=== PATIENT | male | born 1960 | race Caucasian/White ===

== ENCOUNTER 2019-07-12 13:53 | Outpatient (CLI) | payer BC ==
[2019-07-12 14:53] LABS: Hemoglobin 15.5 g/dL (14.0-18.0); Mean Corpuscular HGB CONC 33.7 g/dL (32.0-36.0); Mean Corpuscular Hemoglobin 31.2 pg (27.0-31.0); Mean Corpuscular Volume 92.7 fL (78.0-98.0); Mean Platelet Volume 9.1 fL (7.4-10.4); Platelet Count 214 thou/uL (130-400); RBC Distribution Width 11.9 % (11.5-14.5); Red Blood Cell (RBC) Count 4.97 mill/uL (4.70-6.10); White Blood Cell (WBC) Count 11.1 thou/uL (4.8-10.8)
[2019-07-12 15:01] LABS: INR-International Normal Ratio 1.4; PTT 39.3 SEC (22.9-36.1); Prothrombin Time 17.3 SEC (12.0-14.7)
[2019-07-12 15:15] LABS: Anion Gap 12 mmol/L (10-20); BUN (Urea Nitrogen) 19 mg/dL (8.4-25.7); Calc. Creatinine Clearance 0 mL/min (70-130); Calcium 8.8 mg/dL (7.8-10.44); Carbon Dioxide 24 mmol/L (22-29); Chloride 109 mmol/L (98-107); Estimated GFR-MDRD 86; Glucose 115 mg/dL (70-105); Potassium 4.1 mmol/L (3.5-5.1); Sodium 141 mmol/L (136-145)
== END 2019-07-12 13:54 | disposition home or self-care (01) ==
LOC: LABBT 13:53
PROVIDERS: ATTEND Internal Medicine Cardiovascular Disease
DX: Z01.818 Encounter for other preprocedural examination (principal); I48.91 Unspecified atrial fibrillation
CPT/HCPCS: 80048; 85027; 85610; 85730; 93005; 93010

== ENCOUNTER 2019-07-16 05:34 | Inpatient (IN) | payer BC ==
[2019-07-16] MEDS ORDERED: Fentanyl 100 MCG/2 ML VIAL ONE ×2 (06:49→08:27)
[2019-07-16] MEDS ORDERED: Midazolam HCl 2 mg/2 ml Vial ONE ×2 (06:49→07:43)
[2019-07-16] MEDS ORDERED: Heparin 10,000 UNITS/1 ML VIAL ONE ×3 (07:02→11:26)
[2019-07-16] MEDS ORDERED: Heparin (Artline) 1,500 ML ONE (07:02)
[2019-07-16] MEDS ORDERED: Heparin 25,000 units/D5W 500 ML ONE (08:20)
[2019-07-16] MEDS ORDERED: Isoproterenol 0.2 MG/1 ML AMP ONE (08:20)
[2019-07-16] MEDS ORDERED: PHENYLEPHRINE-NS 100 MCG/ML 10 ML SYRINGE ONE ×3 (09:06→13:47)
[2019-07-16] MEDS ORDERED: Phenylephrine HCL 10 MG/ML VIAL ONE (09:22)
[2019-07-16] MEDS ORDERED: Acetaminophen/Codeine 30-300mg Tablet PO PRN ×3 (11:15→13:00)
[2019-07-16] MEDS ORDERED: Furosemide 40 MG TAB PO PRN (11:17)
[2019-07-16] MEDS ORDERED: Ketorolac Tromethamine 30 MG/ML VIAL IVP PRN (11:17)
[2019-07-16] MEDS ORDERED: Protamine Sulfate 50 MG/5 ML VIAL ONE (12:29)
[2019-07-16] MEDS ORDERED: ACETAMINOPHEN PO PRN (12:57)
[2019-07-16] MEDS ORDERED: [UNRECOGNIZED DRUG - OTHER] PO PRN (12:57)
[2019-07-16] MEDS ORDERED: DIPHENHYDRAMINE PO PRN (12:57)
[2019-07-16] MEDS ORDERED: PHENYLEPHRINE PO PRN (12:57)
[2019-07-16] MEDS ORDERED: DOPamine 400 MG/D5W 250 ML 250 ML ONE (13:20)
--- NOTE | 2019-07-16 13:27 | OP ---
DATE OF PROCEDURE: 07/16/2019 PROCEDURE PERFORMED: Electrophysiology study and radiofrequency ablation. REASON FOR PROCEDURE: Mr. Liu is a 59-year-old man with history of the atrial fibrillation, was found persisting in 04/2019, also [id number] reduced LVEF at 40% to 45% noted. He was anticoagulated since then and his left atrium was found to be markedly enlarged and eventually primary ablation approach was chosen due to his lack of comorbidities. The left atrial size enlargement which likely make antiarrhythmic agents successfully suppressed atrial arrhythmias, here for pulmonary venous isolation procedure. DESCRIPTION OF PROCEDURE: The patient received general anesthesia by anesthesia specialist. The left and right femoral vein was prepped and draped and anesthetized using subcutaneous lidocaine. Under ultrasound guidance, both femoral veins were cannulated. On the left side, an 11-Zambian sheath was used to advance the intracardiac echocardiogram probe into the right atrium, which was used to monitor the transeptal procedure, the pericardial space, and catheter manipulation throughout the case. Also, on the left femoral vein, a Preface long sheath was used to position a duo-Deca catheter in the right atrium and CS position. Also, from the right side, two 8-Zambian short sheaths were introduced initially, through which a ThermoCool SFST catheter was used to obtain 3D map of the right atrium, His bundle, CS, and RV position. Pace mapping and recording was performed in each location. Following that, transseptal puncture was performed after IV heparin was administered in bolus and drip fashion. ACT was checked throughout the procedure to keep ACT over 350. For transseptal procedure, the 8-Zambian short sheath in the right groin was exchanged to SL1 transseptal sheath. A powered Ubiq Mobile transseptal needle was used to achieve transseptal puncture under intracardiac echo and fluoroscopic monitoring. Through the SL1 sheaths, a ThermoCool SFST catheter and a 20-pole Lasso catheter were advanced to the left atrium. 3D map of the left atrium was obtained. Following that, pulmonary venous isolation procedure was performed with esophageal temperature monitored throughout the case to avoid excessive heating. All 4 pulmonary veins were isolated. The posterior wall was also isolated with a roof and an inferior line. Despite these efforts, the patient remained in atrial fibrillation and additional lines were placed in the interatrial septum as well as the roof of the coronary sinus. [id number] scarring was seen. Following these efforts, cardioversion was performed and restored sinus rhythm. Isuprel was administered at 20 mcg per minute and any reconnection was re-ablated. At this point, the catheter was pulled back to the right side and they removed from the body. The long sheaths were exchanged for short sheaths, and after reversal of IV heparin with protamine bolus, the vascular sheaths were closed with Vascade closure device. During the case, intracardiac echo probe did not demonstrate change in the pericardial space. No effusion noted at all. The cardiac silhouette also did not change on fluoroscopy. Following numerical findings were noted. Baseline rhythm was atrial fibrillation. QRS 104 milliseconds, HV 46 milliseconds, AV Wenckebach cycle length after voodoo sinus rhythm was 270 milliseconds, retrograde Wenckebach cycle length was 480 milliseconds. Concentric retrograde VA conduction was seen with LV pacing. AV juju ERP was 400/240 milliseconds and no dual AV juju physiology was seen. The post ablation rhythm was sinus rhythm with cycle length of 832 milliseconds , NJ 174, QRS 103, QT 375 milliseconds. The atrial ERP was 400/200 milliseconds. No atrial arrhythmia was induced with these method. The total ablation time was 23 minutes and 30 seconds with a total of 40 lesions delivered at 40 thomas. CONCLUSION: 1. Successful isolation of all 4 pulmonary vein as was a posterior wall. Additional ablation lesion placed at the interatrial septum and the roof of the coronary sinus. 2. Normal sinus and atrioventricular juju function and His-Purkinje function pre and post ablation. 3. No evidence of accessory pathway. PLAN: Continue anticoagulation and monitor for recurrent atrial arrhythmias. Job ID: [id number] [facility]
[2019-07-16] MEDS ORDERED: Esmolol 100 MG/10 ML VIAL ONE (13:47)
[2019-07-16] MEDS ORDERED: Lidocaine 1% PF 5 ML VIAL ONE (13:47)
[2019-07-16] MEDS ORDERED: ePHEDrine/0.9% NaCl/PF SYRINGE 50 mg/10 ml ONE (13:47)
[2019-07-16] MEDS ORDERED: Glycopyrrolate 0.2 MG/ML 5 ML SYRINGE ONE (13:47)
[2019-07-16] MEDS ORDERED: Ondansetron PF 4 MG/2 ML Vial ONE (13:47)
[2019-07-16] MEDS ORDERED: PROPOFOL 200 MG/20 ML VIAL ONE (13:47)
[2019-07-16] MEDS ORDERED: DOPamine 400 MG/D5W 250 ML 250 ML IVPB SCH (14:00)
[2019-07-16] MEDS: Sucralfate 1 GM TAB PO SCH ×3 (15:10→20:12)
[2019-07-16] MEDS ORDERED: Ondansetron HCl/PF 4 MG/2 ML Vial IVP PRN (16:15)
[2019-07-16] MEDS ORDERED: Non-Formulary Medication 1 EACH PO PRN (16:15)
[2019-07-16] MEDS ORDERED: Promethazine HCl 25 MG/ML VIAL IM/IV PRN (16:15)
[2019-07-16 17:34] LABS: #Monocytes 0.7 thou/uL (0.11-0.59); #Neutrophils 11.9 thou/uL (1.40-6.50); %Basophils 0.1 % (0.0-1.0); %Eosinophils 0.3 % (0.0-10.0); %Lymphocytes 7.1 % (21.0-51.0); %Monocytes 5.4 % (0.0-10.0); %Neutrophils 87.2 % (42.0-75.0); Hemoglobin 14.2 g/dL (14.0-18.0); Mean Corpuscular HGB CONC 33.7 g/dL (32.0-36.0); Mean Corpuscular Hemoglobin 31.5 pg (27.0-31.0); Mean Corpuscular Volume 93.7 fL (78.0-98.0); Platelet Count 164 thou/uL (130-400); Red Blood Cell (RBC) Count 4.52 mill/uL (4.70-6.10); White Blood Cell (WBC) Count 13.6 thou/uL (4.8-10.8)
--- NOTE | 2019-07-16 17:42 | RAD ---
Exam: Chest one view HISTORY:Status post ablation. Evaluate for pneumothorax or pleural effusion. Comparison: None FINDINGS: Cardiac silhouette:Magnified due to portable technique. Aorta: Unremarkable Pulmonary vessels: Normal Costophrenic angles: Clear LUNGS: Diminished lung volumes, likely due to poor inspiratory effort. Pneumothorax: None Osseous abnormalities: None IMPRESSION: 1. No pneumothorax. 2. Magnified cardiac silhouette which is presumed to be due to portable technique. If there is concer n for pericardial fluid, dedicated two-view chest radiograph is recommended
[2019-07-16 17:58] LABS: ALT (SGPT) 37 U/L (8-55); AST (SGOT) 36 U/L (5-34); Albumin 3.7 g/dL (3.5-5.0); Alkaline Phosphatase 62 U/L (40-110); Anion Gap 9 mmol/L (10-20); BUN (Urea Nitrogen) 17 mg/dL (8.4-25.7); Bilirubin, Total 1.9 mg/dL (0.2-1.2); Calc. Creatinine Clearance 119 mL/min (70-130); Calcium 8.2 mg/dL (7.8-10.44); Carbon Dioxide 27 mmol/L (22-29); Chloride 107 mmol/L (98-107); Estimated GFR-MDRD 79; Globulin 2.5 g/dL (2.4-3.5); Glucose 178 mg/dL (70-105); Potassium 4.4 mmol/L (3.5-5.1); Protein, Total 6.2 g/dL (6.0-8.3); Sodium 139 mmol/L (136-145)
--- NOTE | 2019-07-16 18:21 | PDOC.HOSPP ---
- Subjective Encounter Date: 07/16/19 Encounter Time: 18:00 Subjective: sob+, no chest pain or palp at bedside has been weaned off dopamine drip, sbp around 104 - Objective Vital Signs & Weight: Vital Signs (12 hours) Temp Pulse Ox 07/16/19 16:24 95 07/16/19 16:00 98.3 F Weight Weight 227 lb Most Recent Monitor Data Heart Rate from ECG 76 NIBP 104/67 NIBP BP-Mean 79 Respiration from ECG 20 SpO2 93 I&O: 07/15/19 07/16/19 07/17/19 06:59 06:59 06:59 Intake Total 434.1 Balance 434.1 Result Diagrams: 07/16/19 17:23 07/16/19 17:23 Hospitalist ROS - Medication Medications: Active Medications Generic Name Dose Route Start Last Admin Trade Name Freq PRN Reason Stop Dose Admin Sucralfate 1 gm 07/16/19 11:30 07/16/19 17:08 Carafate PO 07/30/19 07:31 1 gm ACHS LES Administration - Exam General Appearance: awake alert Eye: PERRL, anicteric sclera ENT: no oropharyngeal lesions, moist mucosa Neck: supple, no JVD Heart: RRR, no murmur Respiratory: no wheezes, no rales Gastrointestinal: soft, non-tender, non-distended, normal bowel sounds Extremities: no cyanosis, no edema Neurological: cranial nerve grossly intact, no focal deficits Psychiatric: normal affect, A&O x 3 Hosp A/P (1) S/P ablation of atrial fibrillation Code(s): Z98.890 - OTHER SPECIFIED POSTPROCEDURAL STATES; Z86.79 - PERSONAL HISTORY OF OTHER DISEASES OF THE CIRCULATORY SYSTEM Status: Acute (2) Hypotension Status: Resolved Qualifiers: Hypotension type: unspecified hypotension type Qualified Code(s): I95.9 - Hypotension, unspecified (3) Nonischemic cardiomyopathy Code(s): I42.8 - OTHER CARDIOMYOPATHIES Status: Chronic (4) Obesity (BMI 30.0-34.9) Code(s): E66.9 - OBESITY, UNSPECIFIED Status: Chronic (5) Afib Code(s): I48.91 - UNSPECIFIED ATRIAL FIBRILLATION Status: Chronic Qualifiers: Atrial fibrillation type: paroxysmal Qualified Code(s): I48.0 - Paroxysmal atrial fibrillation - Plan pt is s/p ablation of afib with pulm vein isolation for chronic recurrent afib post op pt had hypotension and was on dopamine infusion, which has been weaned off now has sob, portable cxr is rotated?, in view of sob, hypotension, will obtain CT chest wo contrast to make sure no pericardial effusion echo shows ef of 40% is on coreg, eliquis, protonix, sucralfate. will f/u likely dc plan in am if stable
[2019-07-16 19:41] VITALS: BP 101/62
[2019-07-16] MEDS: Carvedilol 3.125 MG TAB PO SCH (20:12)
[2019-07-16] MEDS: Apixaban 5 MG TAB PO SCH (20:12)
--- NOTE | 2019-07-16 20:56 | CT ---
CHEST CT WITHOUT CONTRAST: History: Enlarged cardiac silhouette noted on recent chest radiograph. Patient has undergone cardiac ablation. Comparison: None. FINDINGS: Lower neck: Enlarged heterogeneous left thyroid lobe, incompletely evaluated. Left thyroid lobe measu res 4.8 x 3.9 cm. Limited evaluation of the mediastinum by the lack of IV contrast. There is a small amount of pericard ial fluid in the expected recesses. A large pericardial effusion is not appreciated. Heart size is no rmal. There are calcified paratracheal, precarinal and subcarinal lymph nodes. Normal caliber aorta. Visualized upper abdomen is unremarkable. Calcified granuloma in the liver and spleen are noted. There are small bilateral pleural effusions. There is no pneumothorax. Trachea and central bronchi are patent. Linear opacities and consolidation in both lower lobes likely represent areas of subsegmental atelect asis. No suspicious masses or nodules in the lung parenchyma. No lytic or blastic lesions in the osseous structures. IMPRESSION: 1. No evidence of cardiomegaly. No significant paracardial fluid. 2. No evidence of pneumothorax. 3. Enlarged heterogeneous left thyroid lobe. Non-emergent thyroid ultrasound. POS: PPP
[2019-07-17] MEDS: Sucralfate 1 GM TAB PO SCH ×4 (09:56→20:34)
[2019-07-17] MEDS ORDERED: Amiodarone 150 MG, Admixture Fee 1 EACH in Dextrose 5% in Water 100 ML IVPB SCH (10:00)
[2019-07-17] MEDS: Amiodarone 450 MG, Admixture Fee 1 EACH in Dextrose 5% in Water 250 ML IVPB SCH ×2 (10:49→17:47)
[2019-07-17] MEDS: Apixaban 5 MG TAB PO SCH ×2 (10:49→20:34)
[2019-07-17] MEDS: Carvedilol 3.125 MG TAB PO SCH ×2 (10:49→20:34)
--- NOTE | 2019-07-17 10:50 | ULT ---
Thyroid ultrasound: 07/17/2019 HISTORY: Abnormal chest CT demonstrating an enlarged heterogeneous left thyroid lobe TECHNIQUE: Multiplanar grayscale sonographic imaging of the thyroid gland is obtained. FINDINGS: The thyroid isthmus measures 4 mm in AP dimension. The right lobe measures 3.7 x 1.4 x 1.8 cm and the left lobe measures 6.2 x 5.9 x 4.2 cm. There is a complex large solid and cystic nodule replacing the majority of the left lobe of the thyro id gland measuring 4.9 x 5.3 x 4.1 cm. No thyroid nodule is noted within the isthmus or the right lobe. IMPRESSION: Complex solid and cystic nodule replacing the majority of the left lobe of the thyroid gl and measuring up to 5.3 cm. TI-RADS Category 4-moderately suspicious. Given size greater than 1.5 cm, fine-needle aspiration of dominant left thyroid nodule advised.
[2019-07-17 10:51] LABS: T4 11.4 ug/dL (4.87-11.72); Thyroid Stimulating Hormone 0.1954 uIU/mL (0.35-4.94)
--- NOTE | 2019-07-17 14:05 | PDOC.EP ---
- Subjective Date: 07/17/19 Time: 08:00 Interval History: follow up after PVAI. Had mild transient hypotension post ablation and was on briefly low dose dopamine gtt at 5mcg/min. Dopamine off 07/16 afternoon. BP stable over HS. Feels well. Back into AF at 0600 but asymptomatic with this. - Review of Systems Constitutional: denies: chills, fever, malaise, sweats, weakness, other Respiratory: denies: cough, hemoptysis, pleuritic pain, shortness of breath Cardiology: denies: chest pain, edema, light headedness, orthopnea, palpitations , swelling Gastrointestinal: denies: abdominal pain, constipation, diarrhea, nausea, vomitting Musculoskeletal: denies: unstable gait, falls, leg pain, foot pain - Objective Allergies/Adverse Reactions: Allergies Allergy/AdvReac Type Severity Reaction Status Date / Time smallpox vaccine,live Allergy hospitalized Verified 07/12/19 14:13 as an infant Current Medications Acetaminophen/Codeine Phosphate (Tylenol #3) 1 tab PO Q4H PRN PRN Reason: Mild Pain (1-3) Acetaminophen/Codeine Phosphate (Tylenol #3) 2 tab PO Q4H PRN PRN Reason: Moderate Pain (4-6) Apixaban (Eliquis) 5 mg PO BID [facility] Last Admin: 07/17/19 10:49 Dose: 5 mg Carvedilol (Coreg) 3.125 mg PO BID [facility] Last Admin: 07/17/19 10:49 Dose: 3.125 mg Furosemide (Lasix) 40 mg PO PRN PRN PRN Reason: SOB &/or Wheezing Dopamine HCl/Dextrose (Dopamine 400 Mg/D5w 250 Ml) 250 mls @ 0 mls/hr IVPB INF [facility]; Protocol Amiodarone HCl 450 mg/Miscellaneous Medication 1 each/ Dextrose/Water 259 mls @ 0 mls/hr IVPB [facility]; Protocol Last Admin: 07/17/19 10:49 Dose: 259 mls Ketorolac Tromethamine (Toradol) 30 mg IVP Q6H PRN PRN Reason: Pain Stop: 07/21/19 11:18 Pantoprazole Sodium (Protonix) 40 mg PO DAILY LES Stop: 08/15/19 09:01 Last Admin: 07/17/19 10:49 Dose: 40 mg Diphenhydra/Phenyleph/Acetamin ( Cold & Flu Relief Multi-Symptom Liquid ) 0 each PO Q4H PRN PRN Reason: cold & flu symptoms Sucralfate (Carafate) 1 gm PO ACHS LES Stop: 07/30/19 07:31 Last Admin: 07/17/19 12:11 Dose: Not Given Vital Signs & Weight: Vital Signs Temp Pulse Ox 07/17/19 12:00 98.5 F 07/17/19 11:30 95 07/17/19 07:00 98.5 F 07/17/19 04:00 98 F Weight 227 lb I/O: I/O 07/16/19 07/17/19 07/18/19 06:59 06:59 06:59 Intake Total 794.1 620 Output Total 425 525 Balance 369.1 95 - Quality Measures Condition: Atrial Fibrillation/Flutter (hx or current) CV meds: Eliquis: Yes - Physical Exam General: alert & oriented x3, appears well, no apparent distress, speech clear, affect appropriate HEENT: mucus membranes moist, normocephaly Neck: supple neck, midline trachea, no JVD/HJR, no masses, no lymphadenopathy Cardiology: no murmur, irregularly irregular, tachycardia Lungs: clear to auscultation, normal breath sounds, no wheeze, rales, rhonchi Neurology: cranial nerve 2-12 intact, grossly intact, no lateralizing findings Abdomen: unremarkable, active bowel sounds, soft, no hepatosplenomegaly Extremities: dry, strong pulses, warm Skin: groin sites stable. negative: bruising, drainage, hematoma, swelling - Labs Result Diagrams: 07/16/19 17:23 07/16/19 17:23 - EKG Interpretation EKG shows: Atrial fibrillation - Assessment/Plan Assessment/Plan: 1. Atrial fibrillation s/p PVAI on 07/16/2019 - SR over HS --> AF at 0600, rates 100-120 - largely asymptomatic with AF - bolus with Amidarone 150mg the gtt per protocol. 2. Hypotension -transient post ablation. brief low dose dopamine. off >12 hrs - BP stable now - Echo and CT r/o pericardial effusion 3. Thyroid abnormality - incidental finding with chest CT - will check TSH and free T4, also thyroid US to assess for any underlying thyroid disease as I am starting 3 month course of amiodarone Continue OAC with Eliquis post ablation. Loading on amiodarone. Anticipate DC in AM on amio taper.
[2019-07-17 14:17] VITALS: BMI 32.4
--- NOTE | 2019-07-17 14:38 | PDOC.HOSPP ---
- Subjective Encounter Date: 07/17/19 Encounter Time: 11:20 Subjective: no c/o chest pain or palp is back in afib this am no sob - Objective Vital Signs & Weight: Vital Signs (12 hours) Temp Pulse Ox 07/17/19 12:00 98.5 F 07/17/19 11:30 95 07/17/19 08:00 95 07/17/19 07:00 98.5 F 07/17/19 04:00 98 F Weight Weight 226 lb 13.69 oz Most Recent Monitor Data Heart Rate from ECG 105 NIBP 116/80 NIBP BP-Mean 92 Respiration from ECG 27 SpO2 96 I&O: 07/16/19 07/17/19 07/18/19 06:59 06:59 06:59 Intake Total 794.1 620 Output Total 425 525 Balance 369.1 95 Result Diagrams: 07/16/19 17:23 07/16/19 17:23 Hospitalist ROS - Medication Medications: Active Medications Generic Name Dose Route Start Last Admin Trade Name Freq PRN Reason Stop Dose Admin Apixaban 5 mg 07/16/19 21:00 07/17/19 10:49 Eliquis PO 5 mg BID LES Administration Carvedilol 3.125 mg 07/16/19 21:00 07/17/19 10:49 Coreg PO 3.125 mg BID LES Administration Amiodarone HCl 450 mg/ 259 mls @ 0 mls/hr 07/17/19 10:00 07/17/19 10:49 Miscellaneous Medication 1 IVPB 259 mls each/ Dextrose/Water INF LES Administration Protocol As Directed Pantoprazole Sodium 40 mg 07/17/19 09:00 07/17/19 10:49 Protonix PO 08/15/19 09:01 40 mg DAILY LES Administration Sucralfate 1 gm 07/16/19 11:30 07/17/19 12:11 Carafate PO 07/30/19 07:31 Not Given ACHS LES - Exam General Appearance: awake alert Eye: PERRL, anicteric sclera ENT: no oropharyngeal lesions, moist mucosa Neck: supple, no JVD Heart: no murmur, irregular Respiratory: no wheezes, no rales Gastrointestinal: soft, non-tender, non-distended, normal bowel sounds Extremities: no cyanosis, no edema Neurological: cranial nerve grossly intact, no focal deficits Psychiatric: normal affect, A&O x 3 Hosp A/P (1) Atrial fibrillation with RVR Code(s): I48.91 - UNSPECIFIED ATRIAL FIBRILLATION Status: Acute (2) S/P ablation of atrial fibrillation Code(s): Z98.890 - OTHER SPECIFIED POSTPROCEDURAL STATES; Z86.79 - PERSONAL HISTORY OF OTHER DISEASES OF THE CIRCULATORY SYSTEM Status: Acute (3) Hypotension Status: Resolved Qualifiers: Hypotension type: unspecified hypotension type Qualified Code(s): I95.9 - Hypotension, unspecified (4) Nonischemic cardiomyopathy Code(s): I42.8 - OTHER CARDIOMYOPATHIES Status: Chronic (5) Obesity (BMI 30.0-34.9) Code(s): E66.9 - OBESITY, UNSPECIFIED Status: Chronic - Plan pt is s/p ablation of afib with pulm vein isolation for chronic recurrent afib on 07/16/2019 this am is back in afib with rvr, was in sinus rhythm post procedure. post op pt had hypotension, now resolved echo shows ef of 40% is on coreg, eliquis, protonix, sucralfate and iv amiodarone drip. will f/u may tx to telemetry if ok with . Usg thyroid results noted, has complex cyst in left lobe, will need outpt FNAC will order free T3, T4 and TSH in am.
[2019-07-18 04:28] LABS: Anion Gap 10 mmol/L (10-20); BUN (Urea Nitrogen) 14 mg/dL (8.4-25.7); Calc. Creatinine Clearance 130 mL/min (70-130); Calcium 8.5 mg/dL (7.8-10.44); Carbon Dioxide 26 mmol/L (22-29); Chloride 106 mmol/L (98-107); Estimated GFR-MDRD 87; Glucose 136 mg/dL (70-105); Potassium 4.1 mmol/L (3.5-5.1); Sodium 138 mmol/L (136-145)
[2019-07-18 04:51] LABS: Free T4 (Free Thyroxine) 1.38 ng/dL (0.70-1.48); Thyroid Stimulating Hormone 0.1548 uIU/mL (0.35-4.94)
[2019-07-18] MEDS: Sucralfate 1 GM TAB PO SCH ×2 (08:00→11:52)
[2019-07-18] MEDS ORDERED: Amiodarone 200 MG TAB PO SCH (09:00)
[2019-07-18] MEDS: Carvedilol 3.125 MG TAB PO SCH ×2 (09:17→11:52)
[2019-07-18] MEDS: Apixaban 5 MG TAB PO SCH (09:17)
[2019-07-18 11:31] VITALS: TEMP 97.9
--- NOTE | 2019-07-18 12:38 | PDOC.HOSPP ---
- Subjective Encounter Date: 07/18/19 Encounter Time: 09:45 Subjective: Patient seen and examined. No new complaints. No overnight events - Objective Vital Signs & Weight: Vital Signs (12 hours) Temp Pulse Ox 07/18/19 11:31 97.9 F 07/18/19 11:00 97.9 F 07/18/19 08:00 99.0 F 07/18/19 07:53 95 07/18/19 05:00 98.2 F Weight Weight 226 lb 13.69 oz Most Recent Monitor Data Heart Rate from ECG 90 NIBP 119/86 NIBP BP-Mean 97 Respiration from ECG 22 SpO2 98 I&O: 07/17/19 07/18/19 07/19/19 06:59 06:59 06:59 Intake Total 794.1 1420 330 Output Total 425 2175 250 Balance 369.1 -755 80 Result Diagrams: 07/16/19 17:23 07/18/19 03:19 Radiology Reviewed by me: Yes EKG Reviewed by me: Yes Hospitalist ROS - Review of Systems ENT: denies: ear pain, ear discharge, nose pain, nose discharge, nose congestion , mouth pain, mouth swelling, throat pain, throat swelling, other Respiratory: denies: cough, dry, shortness of breath, hemoptysis, SOB with excertion, pleuritic pain, sputum, wheezing, other Cardiovascular: denies: chest pain, palpitations, orthopnea, paroxysmal noc. dyspnea, edema, light headedness, other Gastrointestinal: denies: nausea, vomiting, abdominal pain, diarrhea, constipation, melena, hematochezia, other Genitourinary: denies: dysuria, frequency, incontinence, hematuria, retention, other Musculoskeletal: denies: neck pain, shoulder pain, arm pain, back pain, hand pain, leg pain, foot pain, other - Medication Medications: Active Medications Generic Name Dose Route Start Last Admin Trade Name Freq PRN Reason Stop Dose Admin Amiodarone HCl 200 mg 07/18/19 09:00 07/18/19 09:16 Cordarone PO 200 mg TID LES Administration Apixaban 5 mg 07/16/19 21:00 07/18/19 09:17 Eliquis PO 5 mg BID LES Administration Carvedilol 3.125 mg 07/18/19 09:00 07/18/19 11:52 Coreg PO 07/18/19 23:00 3.125 mg QID LES Administration Pantoprazole Sodium 40 mg 07/17/19 09:00 07/18/19 09:18 Protonix PO 08/15/19 09:01 40 mg DAILY LES Administration Sucralfate 1 gm 07/16/19 11:30 07/18/19 11:52 Carafate PO 07/30/19 07:31 1 gm ACHS LES Administration - Exam General Appearance: NAD, awake alert Eye: PERRL, anicteric sclera ENT: normocephalic atraumatic, no oropharyngeal lesions Neck: supple, symmetric, no JVD, no thyromegaly Heart: no murmur, no gallops, no rubs, irregular Respiratory: CTAB, no wheezes, no rales, no ronchi Gastrointestinal: soft, non-tender, non-distended, normal bowel sounds Extremities: no cyanosis, no clubbing Skin: normal turgor, no lesions Neurological: cranial nerve grossly intact, normal sensation to touch, no focal deficits Musculoskeletal: normal tone, normal strength, no muscle wasting Psychiatric: normal affect, normal behavior, A&O x 3 Hosp A/P (1) Atrial fibrillation with RVR Code(s): I48.91 - UNSPECIFIED ATRIAL FIBRILLATION Status: Acute (2) S/P ablation of atrial fibrillation Code(s): Z98.890 - OTHER SPECIFIED POSTPROCEDURAL STATES; Z86.79 - PERSONAL HISTORY OF OTHER DISEASES OF THE CIRCULATORY SYSTEM Status: Acute (3) Nonischemic cardiomyopathy Code(s): I42.8 - OTHER CARDIOMYOPATHIES Status: Chronic (4) Obesity (BMI 30.0-34.9) Code(s): E66.9 - OBESITY, UNSPECIFIED Status: Chronic (5) Hypotension Status: Resolved Qualifiers: Hypotension type: unspecified hypotension type Qualified Code(s): I95.9 - Hypotension, unspecified - Plan old records reviewed/req 07/18/19 now on oral amiodaron plan for discharge medication reviewed and continue to provide symptomatic care and supportive care will sign off
--- NOTE | 2019-07-18 13:39 | EKG ---
Test Reason : POST ABLATION Blood Pressure : / mmHG Vent. Rate : 079 BPM Atrial Rate : 113 BPM P-R Int : 000 ms QRS Dur : 112 ms QT Int : 374 ms P-R-T Axes : 000 -31 -33 degrees QTc Int : 428 ms Atrial fibrillation Left axis deviation Incomplete right bundle branch block Nonspecific T wave abnormality , probably digitalis effect Abnormal ECG When compared with ECG of 12-JUL-2019 14:32, (Unconfirmed) Vent. rate has decreased BY 45 BPM Left anterior fascicular block is no longer Present Nonspecific T wave abnormality now evident in Lateral leads Confirmed by RE ANNA (2) on 07/18/2019 1:38:55 PM Referred By: MODESTO Confirmed By:RE ANNA
--- NOTE | 2019-07-18 13:41 | EKG ---
Test Reason : POSTOP Blood Pressure : / mmHG Vent. Rate : 069 BPM Atrial Rate : 069 BPM P-R Int : 152 ms QRS Dur : 104 ms QT Int : 402 ms P-R-T Axes : 048 -11 014 degrees QTc Int : 430 ms Sinus rhythm with Premature supraventricular complexes Otherwise normal ECG When compared with ECG of 16-JUL-2019 12:09, (Unconfirmed) Sinus rhythm has replaced Atrial fibrillation Incomplete right bundle branch block is no longer Present Nonspecific T wave abnormality, improved in Lateral leads Confirmed by RE ANNA (2) on 07/18/2019 1:40:50 PM Referred By: MODESTO Confirmed By:RE ANNA
--- NOTE | 2019-07-18 13:46 | DIS ---
DATE OF ADMISSION: 07/16/2019 DATE OF DISCHARGE: 07/18/2019 PRIMARY CARE PHYSICIAN: Katerine Stokes, nurse practitioner. DISCHARGE DISPOSITION: Home. PRIMARY DISCHARGE DIAGNOSES: 1. Atrial fibrillation with rapid ventricular response. 2. Status post ablation of atrial fibrillation. 3. Hypotension associated with atrial fibrillation with rapid ventricular response, resolved. SECONDARY DISCHARGE DIAGNOSES: Obesity with BMI 32 and nonischemic cardiomyopathy. PRIMARY PROCEDURE/OPERATION: Radiofrequency ablation, procedure was performed by Dr. Figueroa on July 16, 2019. RADIOLOGICAL INVESTIGATION: Echocardiography showed EF of 40% to 45%. CT chest showed no pneumothorax. No pericardial effusion. Thyroid ultrasound showed a complex solid and cystic nodule in left lobe of thyroid. SIGNIFICANT LABORATORY DATA: WBC 13.6, hemoglobin 14.2, and platelet 164. Sodium 138, creatinine 0.89, TSH 0.15, free T3 of 2.68, and free T4 of 1.38. LFT normal. DISCHARGE MEDICATIONS: 1. Eliquis 5 mg p.o. b.i.d. 2. Amiodarone 200 mg p.o. t.i.d. for 7 days, then amiodarone 200 mg p.o. daily after 7 days. 3. Coreg 6.25 mg b.i.d. 4. Lasix 40 mg p.r.n. 5. Protonix 40 mg daily. 6. Carafate 1 g p.o. before meals and at bedtime. CONTRAINDICATION: None. CODE STATUS: Full code. INPATIENT PRODUCTION LINE WELDER: Dr. Figueroa was primary and he admitted this patient. Dr. Grissom was consulted for medical comanagement. TEST RESULTS PENDING ON DISCHARGE: None. ALLERGY: Small pox vaccine. DISCHARGE PLAN: Posthospital, the patient will follow up with primary care physician and Dr. Figueroa in 2 weeks. HOSPITAL COURSE: A 59-year-old male who was admitted by Dr. Figueroa for ablation for atrial fibrillation, which was done successfully and subsequently, the patient converted back to atrial fibrillation with RVR and he developed hypotension, required ICU transfer. He was treated with amiodarone drip and subsequently oral amiodarone was started. His hypotension resolved and the patient remained stable for last couple of days in ICU and today, the patient is planned for discharge with amiodarone and he will follow up with electrophysiology as instructed. The patient is seen and examined at bedside today. Please see my progress note from today for further detail. Job ID: [id number]
[2019-07-19] MEDS ORDERED: Carvedilol 6.25 MG TAB PO SCH (09:00)
--- NOTE | 2019-07-19 10:03 | DIS ---
DATE OF ADMISSION: 07/16/2019 DATE OF DISCHARGE: 07/18/2019 Dictated by Kathryn Vivar PA-C, for Camden Figueroa MD. Initially admitted under observation, but changed to inpatient status. DIAGNOSES: Atrial fibrillation, transient hypotension. PROCEDURES PERFORMED: Electrophysiology study with mapping and ablation. 23 minutes 30 seconds of ablation time for successful isolation of all 4 pulmonary veins as well as posterior wall. Additional ablation lesion placed at the interatrial septum in the roof of the coronary sinus. Normal sinus and AV node function as well as His-Purkinje function pre and post ablation. No evidence of accessory pathway. The left atrium was found to be markedly enlarged. COMPLICATIONS: Transient hypotension post ablation requiring low-dose dopamine. Ultrasound and CT ordered to rule out pericardial effusion, both were negative and did not suggest any acute effusion. HISTORY OF PRESENT ILLNESS: Mr. Liu is a 59-year-old gentleman with a history of atrial fibrillation that is persistent. He has mildly reduced LVEF at 40% to 45%. He was anticoagulated and primary ablation approach was chosen due to his lack of comorbidities, but also his left atrium is markedly enlarged, which makes antiarrhythmic agents successful in suppressing atrial arrhythmias. He underwent pulmonary venous isolation procedure on 07/16/2019. He did experience some transient hypotension following the procedure. He was on low-dose dopamine at 5 mcg/kg/min for less than 2 hours before his blood pressures had recovered enough to discontinue this drip. An echocardiogram ruled out pericardial effusion. Hospitalist was consulted for medical management. A CT was also ordered, which confirms that there was no pericardial effusion. Initially, his heart rhythm and vital signs were then stable. The following morning, he converted into atypical atrial flutter with variable AV conduction and was placed on amiodarone for antiarrhythmic support and arrhythmia suppression. He remains rate controlled in atypical atrial flutter. He is asymptomatic. He feels well. He is ambulating normally throughout the sams and tolerating p.o. intake. He is eager to discharge home today. On his chest CT imaging, it was found that there was an enlarged heterogeneous left thyroid lobe measuring 4.8 x 3.9 cm and ultrasound was recommended. This was ordered and performed the next day. Left lobe of the thyroid gland measured up to 5.3 cm and it was a TI-RADS category 4, moderately suspicious. Recommended fine-needle aspiration as an outpatient, nonemergent. This can be arranged by his primary care provider on an outpatient basis. SUBJECTIVE: Denies heart racing, palpitations, chest pain or pressure, syncope, near syncope, stroke, stroke-like symptoms, or bleeding at the groin sites. OBJECTIVE: VITAL SIGNS: Temperature 97.9, blood pressure 119/86, respirations 22, and oxygen 98% on room air. GENERAL: The patient is alert and oriented. Speech is clear. Affect is appropriate, in no apparent distress. NECK: Supple. There is no jugular venous distention. LUNGS: Clear to auscultation bilaterally on room air. There are no wheezes, crackles, or rhonchi. HEART: Rate is irregular with controlled rate. PMI is nondisplaced. ABDOMEN: Soft and nontender without palpable masses. Hepatojugular reflux is negative. EXTREMITIES: Warm and dry to touch. Well perfused without clubbing, cyanosis, or edema. Bilateral groin sites are stable without hematoma, bleeding, bruising, and they are open to air. NEUROLOGIC: Nonfocal. Gait is stable. DIAGNOSTIC DATA: Telemetry shows atypical atrial flutter with controlled rate in the 70s. DISCHARGE MEDICATIONS: 1. Prescription for amiodarone taper 200 mg p.o. t.i.d. x1 week, then 200 mg p.o. daily thereafter. 2. Coreg was increased to 6.25 mg p.o. b.i.d. 3. Lasix 40 mg p.o. p.r.n. to be taken. 4. Protonix 40 mg p.o. daily x30 days. 5. Carafate 1 g p.o. before meals and at bedtime x2 weeks. 6. Eliquis 5 mg p.o. b.i.d. DISCHARGE INSTRUCTIONS: Mr. Liu is in stable condition following his atrial fibrillation ablation. He is experiencing early recurrence of atypical atrial flutter and was placed on amiodarone for arrhythmia suppression. Anticipate continuing this with a taper as detailed above, and seen him back in clinic in 2 to 3 weeks. If he remains out of rhythm, we will arrange for an outpatient cardioversion. He is asymptomatic and stable at this time. He understands to continue his Eliquis without interruption. Any postablation concerns or questions will be directed to [facility] for followup. CONDITION AT DISCHARGE: Stable. The patient will follow up in 2 to 3 weeks or sooner if symptoms dictate. Job ID: [id number]
--- NOTE | 2019-07-19 19:55 | PQF ---
RAFAT GAMBOA SALIM NOORJIBHAI MD [id number] CLINICAL DOCUMENTATION CLARIFICATION FORM: POST DISCHARGE Addendum to original discharge summary date: ____ Late entry note date: __ DATE: 07/19/2019 ATTN: Pierre Resendiz Please exercise your independent, professional judgment in responding to the clarification form. Clinical indicators are provided on the bottom of this form for your review Please check appropriate box(s): [ ] Hypovolemic Shock [ ] Cardiogenic Shock [ ] Postoperative Shock [ ] Shock Unspecified [ x ] Other diagnosis __hypotension [ ] Unable to determine In addition, please specify: Present on Admission (POA): [ ] Yes [ x ] No [ ] Unable to determine For continuity of documentation, please document condition throughout progress notes and discharge summary. Thank You. CLINICAL INDICATORS - SIGNS / SYMPTOMS / LABS Vital sign 07/16 BP 96/68 Hospitalist PN p3 07/16 Dr Grissom Pt is s/p ablation of afib with pulm vein isolation for chronic recurrent afib Hospitalist PN p3 07/16 Dr Grissom post op pt had hypotension and was on dopamine infusion, which has been weaned off now Hospitalist PN p3 07/16 Dr Grissom Has SOB, post-able sxr is rotated?, in view of SOB, hypotension, will obtain CT chest w/o contrast to make sure no pericardial effusion Electrophysiology PN p1 07/17 Hypotension transient post ablation. Brief low dose dopamine off >12 hrs RISK FACTORS Hospitalist PN p3 07/16 Afib Hospitalist PN p3 07/16 Nonischemic cardiomyopathy Hospitalist PN p3 07/16 Hypotension Hospitalist PN p3 07/16 s/p ablation TREATMENTS: SEP 01 Dopamine drip SEP 01 Amiodarone Admitted to ICU 07/16 (This form is maintained as a part of the permanent medical record) 2014 [email or web address], [email or web address]. All Rights Reserved [email or web address] [not provided] MTDD
== END 2019-07-18 12:58 | disposition home or self-care (01) | DRG 274 ==
LOC: CCL 05:34 → CCU 14:45
PROVIDERS: ADMIT Internal Medicine Cardiovascular Disease; ATTEND Internal Medicine Cardiovascular Disease
PROC: 02583ZZ Destruction of Conduction Mechanism, Percutaneous Approach (ICD-10-PCS; principal; 2019-07-16)
PROC: 5A2204Z Restoration of Cardiac Rhythm, Single (ICD-10-PCS; 2019-07-16)
PROC: 4A023FZ Measurement of Cardiac Rhythm, Percutaneous Approach (ICD-10-PCS; 2019-07-16)
PROC: 4A0234Z Measurement of Cardiac Electrical Activity, Percutaneous Approach (ICD-10-PCS; 2019-07-16)
PROC: 02K83ZZ Map Conduction Mechanism, Percutaneous Approach (ICD-10-PCS; 2019-07-16)
PROC: 3E033XZ Introduction of Vasopressor into Peripheral Vein, Percutaneous Approach (ICD-10-PCS; 2019-07-16)
DX: I48.19 Other persistent atrial fibrillation (principal); Z68.44 Body mass index [BMI] 60.0-69.9, adult; I95.89 Other hypotension; I08.1 Rheumatic disorders of both mitral and tricuspid valves; I42.8 Other cardiomyopathies; E66.9 Obesity, unspecified; I10 Essential (primary) hypertension; Z79.899 Other long term (current) drug therapy; Z79.82 Long term (current) use of aspirin; Z79.01 Long term (current) use of anticoagulants; Z88.7 Allergy status to serum and vaccine
CPT/HCPCS: 36415; 71045; 71250; 76536; 76942; 80048; 80053; 83880; 84436; 84439; 84443; 84481; 85025; 85347; 92960; 93005; 93010; 93306; 93613; 93623; 93656; 93662; C1731; C1732; C1759; C1769; J0282; J1265; J1644; J2001; J2250; J2370; J2405; J2704; J2720; J3010; J7070

== ENCOUNTER 2019-08-10 05:31 | Outpatient (CLI) | payer BC ==
[2019-08-10 15:45] LABS: Hemoglobin 15.4 g/dL (14.0-18.0); Mean Corpuscular HGB CONC 33.6 g/dL (32.0-36.0); Mean Corpuscular Hemoglobin 31.1 pg (27.0-31.0); Mean Corpuscular Volume 92.8 fL (78.0-98.0); Mean Platelet Volume 9.6 fL (7.4-10.4); Platelet Count 187 thou/uL (130-400); RBC Distribution Width 12.1 % (11.5-14.5); Red Blood Cell (RBC) Count 4.95 mill/uL (4.70-6.10)
[2019-08-10 15:52] LABS: INR-International Normal Ratio 1.2; PTT 40.5 SEC (22.9-36.1); Prothrombin Time 14.9 SEC (12.0-14.7)
[2019-08-10 16:08] LABS: Anion Gap 12 mmol/L (10-20); BUN (Urea Nitrogen) 29 mg/dL (8.4-25.7); Calc. Creatinine Clearance 0 mL/min (70-130); Calcium 9.5 mg/dL (7.8-10.44); Carbon Dioxide 25 mmol/L (22-29); Chloride 106 mmol/L (98-107); Estimated GFR-MDRD 61; Glucose 100 mg/dL (70-105); Potassium 4.8 mmol/L (3.5-5.1); Sodium 138 mmol/L (136-145)
== END 2019-08-10 05:32 | disposition home or self-care (01) ==
LOC: LABBT 05:31
PROVIDERS: ATTEND Internal Medicine Cardiovascular Disease
DX: Z01.812 Encounter for preprocedural laboratory examination (principal); I48.91 Unspecified atrial fibrillation
CPT/HCPCS: 80048; 85027; 85610; 85730

== ENCOUNTER 2019-08-13 12:00 | Day surgery (SDC) | payer BC ==
[2019-08-10 14:46] VITALS: BMI 32.5
[2019-08-13] MEDS ORDERED: PROPOFOL 40 ML ONE (13:20)
[2019-08-13] MEDS ORDERED: PROPOFOL 200 MG/20 ML VIAL ONE (14:30)
--- NOTE | 2019-08-13 14:51 | OP ---
DATE OF PROCEDURE: 08/13/2019 PROCEDURE PERFORMED: External cardioversion. ADDITIONAL REFERRING PHYSICIAN: SPENSER Meyer REASON FOR PROCEDURE: Mr. Liu is a 59-year-old man with history of persistent atrial fibrillation, status post pulmonary venous isolation on July 16, 2019, with early recurrence requiring amiodarone suppression, has prior history of reduced LVEF at 40% to 45% in the past with moderate MR, left atrial area of 5.3 square cm. The patient has been well anticoagulated with Eliquis and atypical atrial flutter, here for cardioversion. DESCRIPTION OF PROCEDURE: The patient received propofol by Anesthesia specialist. After adequate level of sedation achieved, a synchronized 70-joule shock promptly converted the patient back to sinus. CONCLUSION: Successful cardioversion. PLAN: Continue monitoring for recurrent arrhythmia. For now, continue short-term amiodarone administration and continue oral anticoagulation as well. Job ID: [id number]
== END 2019-08-13 14:35 | disposition home or self-care (01) ==
LOC: CCL 12:00
PROVIDERS: ATTEND Internal Medicine Cardiovascular Disease
PROC: 5A2204Z Restoration of Cardiac Rhythm, Single (ICD-10-PCS; principal; 2019-08-13)
DX: I48.4 Atypical atrial flutter (principal); I48.19 Other persistent atrial fibrillation; I42.9 Cardiomyopathy, unspecified; I10 Essential (primary) hypertension; Z79.01 Long term (current) use of anticoagulants; Z79.82 Long term (current) use of aspirin; Z79.899 Other long term (current) drug therapy; Z88.7 Allergy status to serum and vaccine; Z91.048 Other nonmedicinal substance allergy status
CPT/HCPCS: 92960; J2704

== ENCOUNTER 2019-08-23 10:56 | Day surgery (SDC) | payer BC ==
[2019-08-22 13:12] VITALS: BMI 32.5
[2019-08-23] MEDS ORDERED: Lidocaine 1% PF 5 ML VIAL ONE (12:01)
--- NOTE | 2019-08-23 14:45 | ULT ---
Ultrasound-guided fine-needle aspiration of left thyroid nodule: 08/23/2019 HISTORY: Dominant solid and cystic nodule within the left lobe of the thyroid gland for which fine-ne edle aspiration was requested FINDINGS: Informed consent obtained prior to the procedure. Preprocedural imaging demonstrates a 5.1 x 4.2 x 4.6 cm solid and cystic nodule within the left lobe of the thyroid gland. Skin overlying this lesion is prepped and draped in normal sterile fashion and anesthetized with 1% b uffered lidocaine. 4 25-gauge fine-needle aspirations were obtained. Patient tolerated the procedure well. Postprocedural imaging demonstrates no evidence for postbiopsy hemorrhage. IMPRESSION: Successful fine-needle aspiration of left thyroid nodule as above.
== END 2019-08-23 12:20 | disposition home or self-care (01) ==
LOC: ULT 10:56
PROVIDERS: ATTEND Otolaryngology Plastic Surgery within the Head & Neck
PROC: 0GBG3ZX Excision of Left Thyroid Gland Lobe, Percutaneous Approach, Diagnostic (ICD-10-PCS; principal; 2019-08-23)
DX: E04.1 Nontoxic single thyroid nodule (principal); I10 Essential (primary) hypertension; I48.19 Other persistent atrial fibrillation; I48.4 Atypical atrial flutter; Z79.01 Long term (current) use of anticoagulants; Z79.82 Long term (current) use of aspirin; Z79.899 Other long term (current) drug therapy; Z88.7 Allergy status to serum and vaccine; Z91.048 Other nonmedicinal substance allergy status
CPT/HCPCS: 60100; 76942; 88173; 88305; J2001

== ENCOUNTER 2019-11-05 06:56 | Outpatient (CLI) | payer BC, OTHER ==
[2019-11-05 12:08] LABS: Mean Corpuscular HGB CONC 33.3 g/dL (32.0-36.0); Mean Corpuscular Hemoglobin 31.2 pg (27.0-31.0); Mean Corpuscular Volume 93.8 fL (78.0-98.0); Platelet Count 174 thou/uL (130-400); RBC Distribution Width 12.3 % (11.5-14.5); Red Blood Cell (RBC) Count 5.13 mill/uL (4.70-6.10); White Blood Cell (WBC) Count 8.1 thou/uL (4.8-10.8)
[2019-11-05 12:31] LABS: Anion Gap 13 mmol/L (10-20); BUN (Urea Nitrogen) 18 mg/dL (8.4-25.7); Calc. Creatinine Clearance 0 mL/min (70-130); Calcium 9.4 mg/dL (7.8-10.44); Carbon Dioxide 25 mmol/L (22-29); Chloride 106 mmol/L (98-107); Estimated GFR-MDRD 66; Glucose 140 mg/dL (70-105); Potassium 4.3 mmol/L (3.5-5.1); Sodium 140 mmol/L (136-145)
[2019-11-05 18:50] LABS: SARS-CoV-2 MS2 Positive; SARS-CoV-2 N Gene Negative; SARS-CoV-2 S Gene Negative; SARS-CoV-2 orf1ab Negative
== END 2019-11-05 06:57 | disposition home or self-care (01) ==
LOC: LABBT 06:56
PROVIDERS: ATTEND Otolaryngology Plastic Surgery within the Head & Neck
DX: Z01.818 Encounter for other preprocedural examination (principal); Z11.59 Encounter for screening for other viral diseases; E04.9 Nontoxic goiter, unspecified
CPT/HCPCS: 80048; 85027; 87635; 93005; 93010; U0003

== ENCOUNTER 2019-11-08 09:36 | Observation (INO) | payer BC ==
[2019-11-05 11:00] VITALS: BMI 33.5
[2019-11-08] MEDS ORDERED: Succinylcholine Chloride 20 MG/ML 10 ml SYRINGE FS ONE ×2 (10:20→18:55)
[2019-11-08] MEDS ORDERED: PHENYLEPHRINE-NS 100 MCG/ML 10 ML SYRINGE ONE (10:20)
[2019-11-08] MEDS ORDERED: Lidocaine 1% PF 5 ML VIAL ONE (10:20)
[2019-11-08] MEDS ORDERED: Glycopyrrolate 0.2 MG/ML 5 ML SYRINGE ONE (10:20)
[2019-11-08] MEDS ORDERED: PROPOFOL 200 MG/20 ML VIAL ONE ×2 (10:20→18:55)
[2019-11-08] MEDS ORDERED: Atropine Sulfate 0.4 mg/1 ml Vial ONE (10:21)
[2019-11-08] MEDS ORDERED: Bacitracin Zinc Ointment 30 gm TUBE ONE ×2 (13:31→19:41)
[2019-11-08] MEDS ORDERED: Lidocaine 1% w/Epinephrine 1:100K 20 ML VIAL ONE ×2 (13:31→18:43)
[2019-11-08] MEDS ORDERED: Midazolam HCl 2 mg/2 ml Vial ONE ×2 (13:35→19:12)
[2019-11-08] MEDS ORDERED: Fentanyl 250 MCG/5 ML VIAL ONE (13:35)
[2019-11-08] MEDS ORDERED: Fentanyl 100 MCG/2 ML VIAL ONE ×4 (15:27→20:51)
[2019-11-08] MEDS ORDERED: Morphine 2 MG/ML SYRINGE ONE (17:12)
[2019-11-08] MEDS ORDERED: Ketamine 50 MG/ML (10ML VIAL) ONE (18:45)
[2019-11-08] MEDS ORDERED: Dexamethasone 20 MG/5 ML VIAL ONE (18:55)
[2019-11-08] MEDS ORDERED: Rocuronium Bromide 10 MG/ML (10ML VIAL) ONE (18:55)
[2019-11-08] MEDS ORDERED: Hydrocodone-Acetamin 15 ML UDCUP PO PRN (20:50)
[2019-11-08] MEDS ORDERED: Morphine 2 MG/ML SYRINGE SLOW IVP PRN (20:51)
[2019-11-08] MEDS ORDERED: Ondansetron PF 4 MG/2 ML Vial SLOW IVP PRN (20:52)
[2019-11-09] MEDS: Bacitracin 1 PK TOP SCH ×2 (00:11→08:20)
[2019-11-09] MEDS: Sodium Chloride 0.45% 1,000 ML IV SCH ×3 (00:11→08:11)
--- NOTE | 2019-11-09 01:09 | OP ---
DATE OF PROCEDURE: 11/08/2019 PREOPERATIVE DIAGNOSIS: Left thyroid mass. POSTOPERATIVE DIAGNOSIS: Left thyroid mass. PROCEDURE PERFORMED: Left hemithyroidectomy with intraoperative laryngeal nerve monitor. ESTIMATED BLOOD LOSS: 20 mL. COMPLICATIONS: None. ANESTHESIA: GETA. DESCRIPTION OF PROCEDURE: The patient was taken to the operating room and placed supine on the table. General endotracheal anesthesia was obtained by the anesthesia staff. The direct laryngoscope was used to confirm that the laryngeal electrodes were between the true vocal cords bilaterally shoulder roll was placed and the tube was secured to the upper lip. Following this, the patient was prepped and draped in standard surgical fashion. Following this, 8 mL of 1% lidocaine with 1:100,000 epinephrine was injected into haim-shaped area overlying the surgical dissection wound. Following this, an incision was made in a horizontal skin crease with a 15 blade through skin, subcutaneous tissue, and the platysmal layer. Subplatysmal flaps were elevated superiorly and inferiorly, superiorly to the level of the thyroid notch and inferiorly to the sternal notch. Following this, dissection was then carried to the midline the strap muscles. A large thyroid mass was encountered. They appear to nearly completely envelop the entire left thyroid lobe adjacent to the capsule, the superior thyroid artery and vein were suture ligated, and the gland was allowed to be retracted more medially. The recurrent laryngeal nerve was identified and was protected, and the inferior thyroid artery and thyroid veins were suture ligated. Following this, the gland was then and removed from sandoval's ligaments, attaching it to the trachea. Inferior parathyroids were identified and were preserved. The gland was then removed and a large clamp was used to remove the large thyroid lobe along with the isthmus of the thyroid and this area was suture ligated. The wound was irrigated and drain was placed. Hemostatic agent was placed over the recurrent laryngeal nerve as it entered the cricothyroid joint. The wound was then closed using 3-0 Monocryl stitches for the strap muscles and platysma layer and 4-0 stitches for the subcuticular layer, and Dermabond was placed to approximate the skin edges. The patient tolerated the procedure well. Job ID: [id number]
[2019-11-09] MEDS ORDERED: Furosemide 40 MG TAB PO PRN (01:17)
[2019-11-09 04:22] VITALS: TEMP 98.3
[2019-11-09 05:31] LABS: #Lymphocytes 0.5 thou/uL (1.20-3.40); #Monocytes 0.3 thou/uL (0.11-0.59); #Neutrophils 8.4 thou/uL (1.40-6.50); %Basophils 0.2 % (0.0-1.0); %Lymphocytes 5.7 % (21.0-51.0); %Monocytes 2.9 % (0.0-10.0); %Neutrophils 91.2 % (42.0-75.0); Mean Corpuscular HGB CONC 32.6 g/dL (32.0-36.0); Mean Corpuscular Hemoglobin 30.9 pg (27.0-31.0); Mean Corpuscular Volume 94.5 fL (78.0-98.0); Mean Platelet Volume 9.4 fL (7.4-10.4); Platelet Count 168 thou/uL (130-400); RBC Distribution Width 12.1 % (11.5-14.5); Red Blood Cell (RBC) Count 4.55 mill/uL (4.70-6.10); White Blood Cell (WBC) Count 9.2 thou/uL (4.8-10.8)
[2019-11-09 05:50] LABS: Anion Gap 13 mmol/L (10-20); BUN (Urea Nitrogen) 14 mg/dL (8.4-25.7); Calc. Creatinine Clearance 123 mL/min (70-130); Carbon Dioxide 26 mmol/L (22-29); Chloride 102 mmol/L (98-107); Estimated GFR-MDRD 82; Glucose 179 mg/dL (70-105); Potassium 4.6 mmol/L (3.5-5.1); Sodium 136 mmol/L (136-145)
[2019-11-09 07:43] VITALS: BP 126/69
[2019-11-09] MEDS ORDERED: Amiodarone 200 MG TAB PO SCH (09:00)
[2019-11-09] MEDS ORDERED: Carvedilol 6.25 MG TAB PO SCH (09:00)
--- NOTE | 2019-11-09 11:19 | PDOC.EVN ---
Event Note - Event Note Event Note: Notified of the consult. On arrival a short-time later, i was made aware that the patient had already been discharged.
--- NOTE | 2019-11-09 12:08 | DIS ---
DATE OF ADMISSION: 11/08/2019 DATE OF DISCHARGE: 11/09/2019 The patient underwent a post thyroidectomy hematoma, evacuation and drainage yesterday approximately . He showed no bleeding overnight. Drains were then less than 30 mL. He tolerated soft diet for dinner last night. He has been out of bed and ambulating to the restroom without problems. Objective: Vital signs have been stable. On physical exam shows incision to be clean, dry, and intact. No evidence of swelling or masses. Voice is clear. No inspiratory or expiratory stridor and HUMPHREY drains are secured. PLAN: He will be discharged today to follow up with me on Tuesday. 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 Discharge medications include Keflex, Zofran, and [place]. He will resume his home medicines except for his Eliquis. Job ID: [id number]
--- NOTE | 2019-11-09 12:23 | OP ---
DATE OF PROCEDURE: 11/08/2019 PREOPERATIVE DIAGNOSIS: Post thyroidectomy hematoma. POSTOPERATIVE DIAGNOSIS: Post thyroidectomy hematoma. PROCEDURES PERFORMED: 1. Incision and drainage of postoperative thyroidectomy hematoma. 2. Direct laryngoscopy. ESTIMATED BLOOD LOSS: 200 mL. COMPLICATIONS: None. ANESTHESIA: GETA. BRIEF HISTORY: This is a 59-year-old gentleman, who underwent thyroidectomy approximately 6 hours ago. He was being discharged, walking out the hospital door when he felt he had sudden swelling after straining to get in the car. An immediate hematoma was recognized and nursing staff was instructed to direct the patient directly to the operating room. DESCRIPTION OF PROCEDURE: I arrived as the patient was obtaining an IV and was being intubated. Incision was being opened by Dr. Villaseñor with anesthesia to help alleviate any pressure and resolve airway symptoms, which at the time the patient had significant hoarseness that was not previously present prior to the hematoma. Following this, the patient was intubated and the wound was prepped and draped in standard surgical fashion. The previous Dermabond and subcuticular stitches and stitches between the strap muscles were opened and a large hematoma was evacuated. There was small oozing from venous vessels that had previously been cauterized. Suture ligation was then performed on these vessels. There was also oozing present in the cricothyroid joint adjacent to the recurrent laryngeal nerve. This area was suture ligated with a 3-0 silk suture. Following this, wound was irrigated. There was no further bleeding. Multiple Valsalva attempts were made, which showed no active bleeding. Following this, a drain was replaced with a new 10-Hungarian drain and a second 10-Hungarian drain was also placed and was secured. The wound was then closed using Monocryl stitches at the strap muscles, platysma muscle, and subcuticular layer and a 3-0 Prolene stitch was placed, closing the skin. The patient tolerated procedure well and was transferred to recovery room in stable condition where his voice was normal. Direct laryngoscopy confirmed no evidence of swelling or submucosal hematoma of the vocal cords or laryngeal structures. Job ID: [id number]
== END 2019-11-09 09:52 | disposition home or self-care (01) ==
LOC: SDC 09:36 → SJJU 20:20
PROVIDERS: ADMIT Otolaryngology Plastic Surgery within the Head & Neck; ATTEND Otolaryngology Plastic Surgery within the Head & Neck
PROC: 0GTG0ZZ Resection of Left Thyroid Gland Lobe, Open Approach (ICD-10-PCS; principal; 2019-11-08)
PROC: 0G9G3ZZ Drainage of Left Thyroid Gland Lobe, Percutaneous Approach (ICD-10-PCS; 2019-11-08)
DX: D34 Benign neoplasm of thyroid gland (principal); E04.9 Nontoxic goiter, unspecified; E89.820 Postprocedural hematoma of an endocrine system organ or structure following an endocrine system procedure; I10 Essential (primary) hypertension; I25.5 Ischemic cardiomyopathy; I48.91 Unspecified atrial fibrillation; Z79.01 Long term (current) use of anticoagulants; Z79.82 Long term (current) use of aspirin; Z79.899 Other long term (current) drug therapy; Z88.7 Allergy status to serum and vaccine; Z91.048 Other nonmedicinal substance allergy status
CPT/HCPCS: 36415; 80048; 85025; 88307; 88311; 94760; 96360; 96361; G0378; J0461; J1100; J2001; J2250; J2270; J2704; J3010

== ENCOUNTER 2024-01-20 16:00 | Outpatient (CLI) | payer BC | END 2024-01-20 16:01 | disposition home or self-care (01) | LOC: SLEEPLAB 16:00 | PROVIDERS: ATTEND Internal Medicine Cardiovascular Disease | DX: G47.33 Obstructive sleep apnea (adult) (pediatric) (principal); E66.9 Obesity, unspecified; R06.83 Snoring; I10 Essential (primary) hypertension; R73.03 Prediabetes; R00.1 Bradycardia, unspecified; I48.91 Unspecified atrial fibrillation; I49.3 Ventricular premature depolarization; G47.61 Periodic limb movement disorder; Z68.37 Body mass index [BMI] 37.0-37.9, adult | CPT/HCPCS: 95811 ==